=== PATIENT | female | born 1960 | race Caucasian/White ===

== ENCOUNTER 2021-12-21 14:11 | Outpatient (CLI) | payer OTHER, SELFPAY ==
--- NOTE | 2021-12-21 14:40 | CRLHL7_ITS ---
For Patients: As a result of the Cures Act, medical imaging exams and procedure reports are released immediately into your electronic medical record. You may view this report before your referring provider. If you have questions, please contact your health care provider. BILATERAL SCREENING MAMMOGRAM WITH COMPUTER-AIDED DETECTION AND TOMOSYNTHESIS TECHNIQUE: CC and MLO views were obtained. These mammographic images have been obtained using full-field digital technique. These mammographic images were interpreted with the benefit of computer-aided detection. Breast Tomosynthesis was used in this interpretation. COMPARISON FILM: 12/12/20, 12/08/19, 10/28/18. FINDINGS: The breasts are heterogeneously dense, which may obscure small masses IMPRESSION: There is no radiographic evidence for malignancy. ASSESSMENT: BI-RADS Category 1: Negative RECOMMENDATION: Routine screening mammogram in 1 year. A lay language report of this examination will be provided to the patient. Wenceslao Javed M.D. Diagnostic Radiologist [email or web address] JAXON/carlyle / be/Dictated by: Wenceslao Javed MD @ 12/22/2021 8:18:00 AM (Electronically Signed)
== END 2021-12-21 14:12 | disposition home or self-care (01) ==
LOC: MAMMO 14:13
PROVIDERS: PCP Family Medicine; Visit Provider Family Medicine
DX: Z12.31 Encounter for screening mammogram for malignant neoplasm of breast (principal); R92.2 Inconclusive mammogram
CPT/HCPCS: 77063; 77067

== ENCOUNTER 2022-02-21 11:06 | Outpatient (CLI) | payer OTHER, SELFPAY ==
[2022-02-21 09:44] LABS: Albumin* 4.6 g/dL (3.3-5.0); Chloride* 109 mmol/L (96-114)
[2022-02-21 09:45] LABS: Potassium* 4.4 mmol/L (3.6-5.1); Sodium* 141 mmol/L (135-149)
[2022-02-21 09:47] LABS: Alanine Aminotransferase* 19 U/L (4-35); Alkaline Phosphatase* 61 U/L (40-150); Bilirubin Total* 0.6 mg/dL (0.1-1.5); Blood Urea Nitrogen* 16 mg/dL (7-30); Carbon Dioxide* 27 mmol/L (20-32); Cholesterol* 191 mg/dL (90-199); Creatinine* 0.7 mg/dL (0.5-1.5); Estimated Glomerular Filt Rate 98 ml/min; Glucose* 102 mg/dL (60-115); Total Protein* 7.3 g/dL (6.0-8.3); Triglycerides* 45 mg/dL (40-149)
[2022-02-21 09:48] LABS: Calcium* 9.2 mg/dL (8.4-10.6); HDL Cholesterol* 94 mg/dL (>=50); LDL Cholesterol Calculated 88 mg/dL (<100)
[2022-02-21 10:03] LABS: Aspartate Amino Transferase* 22 U/L (12-35)
[2022-02-21 10:14] LABS: Vitamin D 25 Hydroxy* 49 ng/mL (30-80)
== END 2022-02-21 11:07 | disposition home or self-care (01) ==
PROVIDERS: PCP Family Medicine; Visit Provider Family Medicine
DX: R79.89 Other specified abnormal findings of blood chemistry (principal); M85.80 Other specified disorders of bone density and structure, unspecified site; Z13.6 Encounter for screening for cardiovascular disorders
CPT/HCPCS: 80053; 80061; 82306

== ENCOUNTER 2022-05-10 08:38 | Outpatient (CLI) | payer OTHER, SELFPAY | END 2022-05-10 08:39 | disposition home or self-care (01) | PROVIDERS: PCP Family Medicine; Visit Provider Family Medicine | DX: R30.0 Dysuria (principal) | CPT/HCPCS: 87086 ==

== ENCOUNTER 2022-11-14 08:00 | Outpatient (RCR) | payer OTHER, SELFPAY | END 2023-03-14 23:59 | disposition home or self-care (01) | PROVIDERS: PCP Family Medicine; Visit Provider Obstetrics & Gynecology | DX: N99.89 Other postprocedural complications and disorders of genitourinary system (principal); Z51.89 Encounter for other specified aftercare | CPT/HCPCS: 97110; 97140; 97162; 97535 ==

== ENCOUNTER 2022-12-05 11:46 | Outpatient (CLI) | payer OTHER, SELFPAY | END 2022-12-05 11:47 | disposition home or self-care (01) | PROVIDERS: PCP Family Medicine; Visit Provider Physician Assistant | DX: N89.8 Other specified noninflammatory disorders of vagina (principal); R10.2 Pelvic and perineal pain | CPT/HCPCS: 86141; 87070; 87086; 87186 ==

== ENCOUNTER 2022-12-13 08:16 | Outpatient (CLI) | payer OTHER, SELFPAY ==
[2022-12-13 12:57] LABS: Creatinine* 0.6 mg/dL (0.5-1.5); Estimated Glomerular Filt Rate 101 ml/min
--- NOTE | 2022-12-13 13:00 | CRLHL7_ITS ---
For Patients: As a result of the Century Cures Act, medical imaging exams and procedure reports are released immediately into your electronic medical record. You may view this report before your referring provider. If you have questions, please contact your health care provider. Indication: PELVIC AND PERINEAL PAIN Technique: Postcontrast CT abdomen and pelvis. 66 cc Isovue 370 intravenous contrast. Please note that all CT scans at this facility use dose modulation, iterative reconstruction, and/or weight-based dosing when appropriate to reduce radiation dose to as low as reasonably achievable. Comparison: 08/29/2022 Findings: Linear subsegmental atelectasis left lower lobe. No pleural effusion. No free air. Stable subcentimeter cysts in the liver. Similar biliary tree status post cholecystectomy. Normal pancreas and spleen. Normal adrenal glands and kidneys. No adenopathy or free air. No abscess. Bladder normal. Uterus absent. Status post appendectomy. No abdominal wall hernia. No fracture. No bowel obstruction. No bowel wall thickening. Impression: Status post cholecystectomy, appendectomy and hysterectomy. No bowel obstruction or inflammatory change. No incisional abdominal wall hernia or intra-abdominal abscess. Please note that all CT scans at this facility use dose modulation, iterative reconstruction, and/or weight-based dosing when appropriate to reduce radiation dose to as low as reasonably achievable. Dictated by Wenceslao Javed MD @ 12/14/2022 2:12:48 PM (Electronically Signed)
== END 2022-12-13 08:17 | disposition home or self-care (01) ==
LOC: CT 08:16
PROVIDERS: PCP Family Medicine; Visit Provider Physician Assistant
DX: R10.2 Pelvic and perineal pain (principal)
CPT/HCPCS: 36415; 74177; 82565; Q9967

== ENCOUNTER 2022-12-28 10:34 | Outpatient (CLI) | payer OTHER, SELFPAY ==
--- NOTE | 2022-12-28 10:45 | CRLHL7_ITS ---
For Patients: As a result of the Century Cures Act, medical imaging exams and procedure reports are released immediately into your electronic medical record. You may view this report before your referring provider. If you have questions, please contact your health care provider. BILATERAL SCREENING MAMMOGRAM WITH COMPUTER-AIDED DETECTION AND TOMOSYNTHESIS TECHNIQUE: CC and MLO views were obtained. These mammographic images have been obtained using full-field digital technique. These mammographic images were interpreted with the benefit of computer-aided detection. Breast Tomosynthesis was used in this interpretation. COMPARISON FILM: 12/21/21, 12/12/20, 06/08/20. FINDINGS: The breasts are extremely dense, which lowers the sensitivity of mammography IMPRESSION: There is no radiographic evidence for malignancy. ASSESSMENT: BI-RADS Category 2: Benign RECOMMENDATION: Routine screening mammogram in 1 year. A lay language report of this examination will be provided to the patient. Wenceslao Javed M.D. Diagnostic Radiologist [email or web address] KAL/Dictated by: Wenceslao Javed MD @ 12/28/2022 12:09:00 PM (Electronically Signed)
== END 2022-12-28 10:35 | disposition home or self-care (01) ==
PROVIDERS: PCP Family Medicine; Visit Provider Family Medicine
DX: Z12.31 Encounter for screening mammogram for malignant neoplasm of breast (principal); R92.2 Inconclusive mammogram
CPT/HCPCS: 77063; 77067

== ENCOUNTER 2023-01-08 09:25 | Outpatient (CLI) | payer OTHER, SELFPAY | END 2023-01-08 09:26 | disposition home or self-care (01) | PROVIDERS: PCP Family Medicine; Visit Provider Obstetrics & Gynecology | DX: D06.9 Carcinoma in situ of cervix, unspecified (principal) | CPT/HCPCS: 87086 ==

== ENCOUNTER 2023-04-18 13:14 | Outpatient (CLI) | payer OTHER, SELFPAY ==
--- NOTE | 2023-04-18 16:00 | CRLHL7_ITS ---
For Patients: As a result of the Century Cures Act, medical imaging exams and procedure reports are released immediately into your electronic medical record. You may view this report before your referring provider. If you have questions, please contact your health care provider. Indication: Pain Technique: CT Abdomen/Pelvis W/ 65CC ISOVUE 370 Please note that all CT scans at this facility use dose modulation, iterative reconstruction, and/or weight-based dosing when appropriate to reduce radiation dose to as low as reasonably achievable. Comparison: 12/13/2022 Findings: Linear subsegmental scarring within the left lower lobe. No pleural effusion. No suspicious intrahepatic mass. Subcentimeter simple cyst again noted within the dome of the liver. The gallbladder is absent. No biliary obstruction. The pancreas is within normal limits. Normal spleen. Normal adrenal glands. Kidneys are normal. No adenopathy, free air, free fluid or abscess. Minimal atherosclerotic disease. No aneurysm. Bladder normal. No pelvic soft tissue mass. No bowel obstruction. No inflammatory changes. No fracture. Stool is present throughout the redundant colon. Impression: Increased colonic stool burden is suggested which could represent constipation. No bowel obstruction or inflammatory change. Please note that all CT scans at this facility use dose modulation, iterative reconstruction, and/or weight-based dosing when appropriate to reduce radiation dose to as low as reasonably achievable. Dictated by Wenceslao Javed MD @ 04/18/2023 3:40:29 PM (Electronically Signed)
== END 2023-04-18 13:15 | disposition home or self-care (01) ==
LOC: CT 13:16
PROVIDERS: PCP Family Medicine; Visit Provider Obstetrics & Gynecology Gynecologic Oncology
DX: R10.9 Unspecified abdominal pain (principal); D07.1 Carcinoma in situ of vulva; D07.2 Carcinoma in situ of vagina
CPT/HCPCS: 74177; Q9967

== ENCOUNTER 2023-06-27 11:15 | Outpatient (CLI) | payer OTHER, SELFPAY | END 2023-06-27 11:16 | disposition home or self-care (01) | LOC: NFLDREF 07-01 07:13 | PROVIDERS: PCP Family Medicine; Referring Provider Family Medicine; Visit Provider Family Medicine | DX: E78.5 Hyperlipidemia, unspecified (principal); Z13.228 Encounter for screening for other metabolic disorders | CPT/HCPCS: 80053; 80061 ==

== ENCOUNTER 2023-07-25 13:31 | Outpatient (CLI) | payer OTHER, SELFPAY ==
--- OUTSIDE RECORDS SUMMARY | 2023-07-25 13:39 | XMS_ITS ---
Author Name Unknown Organization [facility] Address [address] [place] [address] Care Team Providers Care Chief Operator Name Role Phone Unavailable Unavailable Unavailable Surgery Details Not on file Complications Check Surgery Details section. Procedure Estimated Blood Loss Check Surgery Details section. Procedure Findings Check Surgery Details section. Procedure Specimens Taken Check Surgery Details section.
--- OUTSIDE RECORDS SUMMARY | 2023-07-25 13:39 | XMS_ITS | Encounter Summary ---
Author Name Unknown Organization [facility] Address [address] [place] [address] Care Team Providers Care Financial Planning Adviser Name Role Phone Elsewhere, Pcp Primary Care Provider Unavailabl e Encounter Details Date Type Department Care Team (Late st Contact Info) Description 05/13/2023 Orders Only Division of Gastroenterology in [place], [place] [address] [place] [address] Fred Metzger M.D. [address] [place] [address] Genetic Susceptibility To Disease Social History Tobacco Use Types Packs/Day Years Used Date Smoking Tobacco: Never Smokeless Tobacco: Never Alcohol Use Standard Drinks/Week Comments Yes 3 (1 standard drink = 0.6 oz pur e alcohol) Humiliation, Afraid, Rape, and Kick questionnair e Answer Date Recorded Within the last year, have y ou been afraid of your partner or ex-partner? No 05/29/2022 Within the last year, have y ou been humiliated or emotionally abused in other ways by your partner or ex-partner? No Within the last year, have y ou been kicked, hit, slapped, or otherwise physically hurt by your partner or ex-partner? No 05/29/2022 Within the last year, have y ou been raped or forced to have any kind of sexual activity by your partner or ex-partner? No 05/29/2022 Social Connection and Isolat ion Panel [NHANES] Answer Date Recorded In a typical week, how many times do you talk on the phone with family, friends, or neighbors? More than three times a week 05/29/2022 How often do you get togethe r with friends or relatives? More than three times a week 05/29/2022 How often do you attend chur ch or latter day services? Patient declined 05/29/2022 Do you belong to any clubs o r organizations such as mormonism groups, unions, fraternal or athletic groups, or school groups? Patient declined 05/29/2022 How often do you attend meet ings of the clubs or organizations you belong to? Patient declined 05/29/2022 Are you , , di vorced, , never , or living with a partner? 05/29/2022 AUDIT-C Answer Date Recorded Q1: How often do you have a drink containing alc ohol? 2-3 times a week 05/29/2022 Q2: How many drinks containi ng alcohol do you have on a typical day when you are drinking? 1 or 2 05/29/2022 Q3: How often do you have si x or more drinks on one occasion? Never 05/29/2022 Overall Financial Resource Strain (CARDIA) Answe r Date Recorded How hard is it for you to pa y for the very basics like food, housing, medical care, and heating? Not hard at all 05/29/2022 PHQ-2 Answer Date Recorded PHQ-2 Score 0 11/27/2022 [facility] Occupational Stress Questionnaire Answer Date Recorded Do you feel stress - tense, restless, nervous, or anxious, or unable to sleep at night because your mind is troubled all the time - these days? Not at all 05/29/2022 Exercise Vital Sign Answer Date Recorde d On average, how many days pe r week do you engage in moderate to strenuous exercise (like a brisk walk)? 2 days 05/29/2022 On average, how many minutes do you engage in exercise at this level? 20 min 05/29/2022 Hunger Vital Sign Answer Date Recorded Within the past 12 months, y ou worried that your food would run out before you got the money to buy more. Never true 05/30/19 Within the past 12 months, t he food you bought just didn't last and you didn't have money to get more. Never true 05/29/2022 PRAPARE - Transportation Answer Date Re corded In the past 12 months, has l ack of transportation kept you from medical appointments or from getting medications? No 09/2022 In the past 12 months, has l ack of transportation kept you from meetings, work, or from getting things needed for daily living? No 05/29/2022 Housing Stability Vital Sign Answer Av e Recorded In the last 12 months, was t here a time when you were not able to pay the mortgage or rent on time? No 05/29/2022 In the last 12 months, how many places have you lived? 2 05/29/2022 In the last 12 months, was t here a time when you did not have a steady place to sleep or slept in a detention (including now)? No 05/29/2022 Nutrition Answer Date Recorded Nutrition: EVOO Fat Source Yes 05/29 On average, how many serving s of fruits and vegetables do you eat per day (serving size is equal to 1 cup or approximately the size of a tennis ball)? 0-1 05/29/2022 Dental Answer Date Recorded Dental: Regular Dentist Yes 05/30/19 Employment Answer Date Recorded Employment status Employed and actively working without restrictions 05/29/2022 Education Answer Date Recorded What is the highest level of school you have completed or the highest degree you have received? Associate degree: academic program 05/29/2022 Sex and Gender Information Value Date Recorded Sex Assigned at Female 08/26/2022 7:55 AM CDT Gender Identity Female 08/26/2022 7:55 AM CDT Sexual Orientation Straight 08/26/2022 7: 55 AM CDT documented as of this encounter Plan of Treatment Not on file documented as of this encounter Procedures Procedure Name Priority Date/Time Associated Diagnosis Comments EXT TAPESTRY Routine 10/23/2022 12:00 AM CDT Genetic Susceptibility To Disease documented in this encounter Results * EXT Tapestry (10/23/2022 12:00 AM CDT) Gene Studied BRCA1,BRCA2,MLH1,MSH 2, MSH6,PMS2,EPCAM,APOB,L DLR,LDLRAP1,PCSK9 11/15/2022 12:00 AM [facility] Genetic Disease Assessed Evaluation of 11 genes associated with Hereditary Breast and Ovarian Cancer, Mariee Syndrome and Familial Hypercholesterolemia. 11/15/2022 12:00 AM [employer] Genetic Analysis Overall Interpretation Negative results through Tapestry do not replace diagnostic testing for patients with a personal or family history of cancer/hypercholestero lemia due to limitations with methodology. Consider a referral to a genetic counselor for diagnostic testing if warranted. 11/15/2022 12:00 AM CDT [facility] Genetic Analysis Report See Tapestry PDF Report No actionable gene changes were detected in the genes that cause Familial Hypercholesterolemia. The genes tested for this condition were APOB, LDLR, LDLRAP1, and PCSK9.No actionable gene changes were detected in the genes that cause Hereditary Breast and Ovarian Cancer. The genes tested for this condition were BRCA1 and BRCA2.No actionable gene changes were detected in the genes that cause Mariee Syndrome. The genes tested for this condition were MLH1, MSH2, MSH6, PMS2 and EPCAM. DNA extracted from this individual's sample was captured and enriched using a custom set of reagents ([employer]+ chemistry). Targeted regions were sequenced using an Illumina DNA sequencing system. Your sequence was matched to a modified version of the [place] standard reference genome (GRCh38). Variant calling was completed using a customized version of [employer]'s DanceJam software, requiring 20x coverage for validated variant calls. Copy Number Variants (CNVs) were called using a proprietary bioinformatics pipeline that compared the coverage profile of your sample with the coverage profiles of other reference set samples. [facility] then analyzed the generated variant data for the exons and 10 bp of flanking intronic sequence (and select tagged intronic variants) of the 11 genes included in [employer]xxana from the [employer] Database. Your sample was reviewed for single nucleotide variants (SNVs), indels up to 20 bp in length, and CNVs that are known or predicted to be actionable. NOTE: This assay has limited sensitivity to CNVs smaller than a few exons. APOB, PCSK9, and LDLR interpretation and reporting is specific to the Familial Hypercholesterolemia phenotype. Variants associated with other phenotypes such as Hypobetalipoproteinemi a are not included. Some known complex variants like the inversion of exons 1-7 in the MSH2 gene (Rissa inversion), exons 11-15 of the PMS2 gene, or variants within or immediately adjacent to long homopolymer runs are not analyzed or reported. There are regions that are not covered, such as deep intronic, promoter, and enhancer regions. This assay cannot detect all variants known to increase disease risk. Other clinical diagnostic testing for these conditions could identify variants not detected by this test. If you have had previous testing, these results should be taken into consideration during risk assessments and medical management. 11/15/2022 12:00 AM T [facility] Human Reference Sequence Assembly [id number] 11/15/2022 12:00 AM [facility] Saliva (Mouth) 10/23/2022 Fred Metzger M.D. LAB GENETI C TESTING HELIX [employer] [address], [address] [place] [address], [facility] [address], [address] [place] [address] documented in this encounter Visit Diagnoses Diagnosis Genetic Susceptibility To Disease documented in this encounter Care Teams Financial Planning Adviser Relationship Specialty Start Date End Date Elsewhere, Pcp PCP - General Internal Medicine 06/01/22 documented as of this encounter
--- OUTSIDE RECORDS SUMMARY | 2023-07-25 13:39 | XMS_ITS | Referral Summary ---
Author Name Unknown Organization [facility] Address [address] [place] [address] Care Team Providers Care Pattern Lease Inspector Name Role Phone Elsewhere, Pcp Primary Care Provider Unavailabl e Source Comments Patient records contain information from all sites at [facility]. For routine questions regarding patient records, call [phone] during business hours, M-F 8:00 AM - 5:00 PM Central Time. Record requests for emergency care only can be directed to [phone] at any time.[facility] Encounters Date Type Department Care Team Description 06/25/2023 Nurse Triage Department of Family Medicine, [facility], in [address] [id number] Lisandra Mcneal R.N. Upper Respiratory Infection; Cough; sinus congestion 05/13/2023 Orders Only Division of Gastroenterology in [place], [place] [address] [place] [address] Fred Metzger M.D. Genetic Susceptibility To Disease from Last 3 Months Allergies No known active allergies Medications Medication Sig Dispensed Refills Start Date End Date Status topiramate (TOPAMAX) 50 mg tablet Take 50 mg by mouth daily. 01/13/2020 Active eletriptan (RELPAX) 40 mg tablet Take 40 mg by mouth as needed. 01/13/2020 Active alendronate (FOSAMAX) 70 mg tablet 70 mg once a week. 04/28/2021 Active VITAMIN B COMPLEX ORAL Take 1 tablet by mouth daily. Active ascorbic acid, vitamin C, (VITAMIN C) 500 mg tablet Take 500 mg by mouth daily. Active magnesium 200 mg tablet Take 400 mg by mouth every morning before breakfast. Active multivitamin tablet Take 1 tablet by mouth daily. Active acetaminophen (TYLENOL) 500 mg tablet Take 2 tablets (1,000 mg total) by mouth every 6 (six) hours as needed for pain. Alternate with ibuprofen every 3 hours. Do not exceed 4000 mg or 4 g in 24 hours. 30 tablet 04/30/2022 Active ibuprofen (ADVIL,MOTRIN) 200 mg tablet Take 3 tablets (600 mg total) by mouth every 6 (six) hours as needed for pain. Alternate with acetaminophen every 3 hours. 30 tablet 04/30/2022 Active levoFLOXacin (LEVAQUIN) 500 mg tablet Take 1 tablet (500 mg total) by mouth daily. 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 Patient declined 05/29/2022 Do you belong to any clubs o r organizations such as adventist groups, unions, fraternal or athletic groups, or [...] PHQ-2 Score 0 11/27/2022 [facility] - Occupational Stress Questionnaire Answer Date Recorded [...] money to buy more. Never true 05/30/19 23 Within the past 12 months, t he [...] place to sleep or slept in a penitentiary (including now)? No 05/29/2022 Nutrition Answer Date [...] Orientation Straight 08/26/2022 7: 55 AM CDT Last Filed Vital Signs Vital Sign Reading Time Taken Comments Blood Pressure 96/68 11/27/2022 1:09 PM CDT Pulse 98 11/27/2022 1:09 PM CDT Temperature 36.2 ??C (97.2 ??F) 11/27/2022 1:09 PM CD T Respiratory Rate 20 08/09/2022 9:57 AM CDT Oxygen Saturation 100% 08/09/2022 9:15 AM CDT Inhaled Oxygen Concentration - - Weight 59.4 kg (130 lb 15.3 oz) 11/27/2022 1:09 PM CDT Height 163 cm (5' 4.17) 11/27/2022 1:09 PM CDT Body Mass Index 22.36 11/27/2022 1:09 PM CDT Plan of Treatment Not on file Medical Devices Implanted Type Area Glassworker Device Identifier Shelf Expiration Date Model / Serial / Lot Hardware E.G. Pins/Screws/R ods Hardware e.g. pins/screws/ rods Right: Fingers Description:Right middle fin kenji Procedures Procedure Name Priority Date/Time Associated Diagnosis Comments BASIC METABOLIC PANEL, S/P Routine 08/28/2022 12:00 PM CDT Pain Pelvic Female from Last 3 Months or Most Recently Relevant to Health Maintenance Results * Basic Metabolic Panel (08/28/2022 12:00 PM CDT) Potassium, S 4.4 3.6 - 5.2 mmol/L 08/28/2022 1:22 PM CDT DTL Sodium, S 141 135 - 145 mmol/L 08/28/2022 1:22 PM CDT DTL Chloride, S 105 98 - 107 mmol/L 08/28/2022 1:22 PM CDT DTL Bicarbonate, S 25 22 - 29 mmol/L 08/28/2022 1:22 PM CDT DTL Anion Gap 11 7 - 15 08/28/2022 1:22 PM CDT DTL BUN (Blood Urea Nitrogen), S 12 6 - 21 mg/dL 08/28/2022 1:22 PM CDT DTL Creatinine 0.74 0.59 - 1.04 mg/dL 08/28/2022 1:22 PM CDT DTL Estimated GFR (eGFR) >90 >=60 mL/min/BSA 08/28/2022 1:22 PM CDT DTL Comment: Estimated GFR calculated using the 2020 CKD_EPI creatinine equation. Calcium, Total, S 9.3 8.8 - 10.2 mg/dL 08/28/2022 1:22 PM CDT DTL Glucose, S 98 70 - 140 mg/dL 08/28/2022 1:22 PM CDT DTL Blood (Blood, Venous) 08/28/2022 12:00 PM CDT 08/28/2022 12:49 PM CDT Juan Francisco Germain P.A.-C. LAB BLOOD ADD-ON [facility] [address] [place] [address], [facility] [address] [place] [address] from Last 3 Months or Most Recently Relevant to Health Maintenance Advance Directives For more information, please contact: [phone] * Full Code (Latest Code Status on File) Date Activated Date Inactivated Comments 07/22/2022 8:44 PM 07/23/2022 1:43 PM Question Answer Comments Full Code: Discussed * Full Code Date Activated Date Inactivated Comments 04/30/2022 2:53 PM 04/30/2022 8:05 PM Question Answer Comments Full Code: Discussed * Full Code Date Activated Date Inactivated Comments 04/30/2022 8:58 AM 04/30/2022 2:53 PM Question Answer Comments Full Code: Discussed Care Teams Pattern Lease Inspector Relationship Specialty Start Date End Date Elsewhere, Pcp PCP - General Internal Medicine 06/01/22
--- OUTSIDE RECORDS SUMMARY | 2023-07-25 13:39 | XMS_ITS | Clinical Summary ---
Author Name Unknown Organization [facility] Address [address] [place] [address] Care Team Providers Care Hand Twister Name Role Phone Elsewhere, Pcp Primary Care Provider Unavailabl e Source Comments Patient records contain information from all sites at [facility]. For routine questions regarding patient records, call [phone] during business hours, M-F 8:00 AM - 5:00 PM Central Time. Record requests for emergency care only can be directed to [phone] at any time.[facility] Allergies No known active allergies Medications Medication [...] Overview: Added automatically from request for surgery [id number] Osteoporosis 04/26/2022 Encounters Date Type Department Care Team Description 06/25/2023 Nurse Triage Department of Family Medicine, [facility], in [address] [address] Lisandra Mcneal R.N. Upper Respiratory Infection; Cough; sinus congestion 05/13/2023 Orders Only Division of Gastroenterology in [place], [place] [address] [place] [address] Fred Metzger M.D. Genetic Susceptibility To Disease from Last 3 Months Family History Medical History Relation Name Comments Colon cancer Father My father Hyperlipidemia Father My father Lung cancer Mother My mother Migraines Mother My mother Osteoporosis Mother My mother Breast cancer Mother's Sister Aunt? s mother? s side Relation Name Status Comments Father My father Mother My mother Mother's Sister Aunt? s mother? s side Social History Tobacco Use Types Packs/Day Years [...] often do you attend chur ch or jainism services? Patient declined 05/29/2022 Do you belong to any clubs o r organizations such as muslim groups, unions, fraternal or athletic groups, or [...] Answer Date Recorded PHQ-2 Score 0 11/27/2022 [facility] - Occupational [...] place to sleep or slept in a mcfp (including now)? No 05/29/2022 Nutrition Answer Date [...] 11/27/2022 1:09 PM CDT Plan of Treatment Health Maintenance Due Date Last Done Comments CT Colonography 1960 Cologuard 1960 Hepatitis C Screening 1960 Lipid (Cholesterol) Screening 1960 Mammogram 1960 Zoster Vaccines (1 of 2) 2010 Depression Screening (Annual PHQ-2) 03/25/2023 COVID-19 Vaccine ( season) 2023 12/18/2022, 12/20/2021, 08/02/2021, Additional history exists Fasting Glucose for Diabetes Screening 08/28/2025 08/28/2022, 08/09/2022, 07/22/2022, Additional history exists Colonoscopy 10/04/2025 10/04/2020 Colorectal Cancer Surveillance 10/04/2025 DTaP,Tdap,and Td Vaccines (2 - Td or Tdap) 07/24/2028 07/24/2018 Pneumococcal vaccine (0-64 years) Aged Out 03/19/2019 No longer eligible based on patient's age to complete this topic Cervical Cancer Screening Discontinued 03/15/2022 Influenza Vaccine Completed 12/18/2022, , 12/21/2020, Additional history exists Medical Devices Implanted Type Area Recruiting Intern Device Identifier Shelf Expiration Date Model / [...] Juan Francisco Germain P.A.-C. LAB BLOOD ADD-ON [facility] [address] [place] [address], [facility] [address] [place] [address] from Last 3 Months or Most Recently Relevant to Health Maintenance Advance Directives For more information, please contact: [phone] * Full Code (Latest Code Status on [...] Answer Comments Full Code: Discussed Care Teams Hand Twister Relationship Specialty Start Date End Date Elsewhere, Pcp PCP - General Internal Medicine 06/01/22
--- OUTSIDE RECORDS SUMMARY | 2023-07-25 13:39 | XMS_ITS | Encounter Summary ---
Author Name Unknown Organization [facility] Address [address] [place] [address] Care Team Providers Care Field Laboratory Operator Name Role Phone Elsewhere, Pcp Primary Care Provider Unavailabl e Reason for Visit * Reason Onset Date Comments Upper Respiratory Infection 06/25/2023 Cough 06/25/2023 sinus congestion 06/25/2023 Encounter Details Date Type Department Care Team (Late st Contact Info) Description 06/25/2023 Nurse Triage Department of Family Medicine, [facility], in [address] [address] Lisandra Mcneal, RNicolaN. Upper Respiratory Infection; Cough; sinus congestion Social History Tobacco Use Types Packs/Day Years [...] week 05/29/2022 How often do you attend [facility] or orthodox services? Patient declined 05/29/2022 Do you belong to any clubs o r organizations such as scientology groups, unions, fraternal or athletic groups, or [...] Answer Date Recorded PHQ-2 Score 0 11/27/2022 [facility] - Occupational Stress Questionnaire Answer Date [...] place to sleep or slept in a retirement (including now)? No 05/29/2022 Nutrition Answer Date [...] AM CDT documented as of this encounter Miscellaneous Notes * Telephone Encounter - Lisandra Mcneal R.N. - 06/25/2023 11:00 AM CDT Chief Complaint / Reason for Call Patient is a 62 y.o. female calling regarding Upper Respiratory Infection, Cough, and sinus congestion. Assessment Concern: began with sore throat (nearly resolved), negative COVID test at home, productive cough (yellow-green), sinus congestion and drainage (yellow-green) Present for: one week Home cares tried: Mucinex, Robitussin DM, cough drops, Sudafed Calling to request: appointment The recommended disposition is Home Care. Reason for Disposition Cough Cough with cold symptoms (e.g., runny nose, postnasal drip, throat clearing) Protocols used: Cough - Acute Dmocshccpu-MMHVN-GX Care Advice Patient/Caregiver understands and will follow care advice?: Yes, able to teach back HOME CARE: * You should be able to treat this at home. REASSURANCE AND EDUCATION - COUGH: * It doesn't sound like a serious cough. * Coughing up mucus is very important for protecting the lungs from pneumonia. * Here is some care advice that should help. COUGH MEDICINES: * COUGH DROPS: Ejkq-xzo-jsyiflt cough drops can help a lot, especially for mild coughs. They soothean irritated throat and remove the tickle sensation in the back of the throat. Cough drops are easyto carry with you. * COUGH SYRUP WITH DEXTROMETHORPHAN: An evca-rxd-hlykrnj cough syrup can help your cough. The most common cough suppressant in wurx-iwq-intwzbd cough medicines is dextromethorphan. * HOME REMEDY - HARD CANDY: Hard candy works just as well as hifp-hlr-yixtzji cough drops. People who have diabetes should use sugar-free candy. * HOME REMEDY - HONEY: This old home remedy has been shown to help decrease coughing at night. The adult dosage is 2 teaspoons (10 ml) at bedtime. COUGH SYRUP WITH DEXTROMETHORPHAN: * Cough syrups containing the cough suppressant dextromethorphan may help decrease your cough. * Cough syrup works best for coughs that keep you awake at night. It can also sometimes help in thelate stages of a lung or airway infection when the cough is dry and hacking. Cough syrup can be used along with cough drops. * Examples: Delsym 12-hour Cough, Robitussin Cough Long-Acting, Triaminic Long- Acting, Vicks DayQuil Cough. COUGH SYRUP WITH DEXTROMETHORPHAN - EXTRA NOTES AND WARNINGS: * Do not try to completely stop coughs that produce mucus and phlegm. * Coughing is helpful. It brings up the mucus from the lungs and helps prevent pneumonia. * RESEARCH: Some research studies show that dextromethorphan reduces the frequency and severity of cough in those 18 years and older without significant adverse effects. Other studies suggest that dextromethorphan is no better than placebo at reducing a cough. * DRUG ABUSE: It should be noted that dextromethorphan has become a drug of abuse. This problem is seen most often in teenagers. Overdose symptoms can range from giggling and feeling high to hallucinations and coma. * WARNING: Do not take dextromethorphan if you are taking a monoamine oxidase (MAO) inhibitor now or in the past 2 weeks. Examples of MAO inhibitors include isocarboxazid (Marplan), phenelzine (Nardil), selegiline (Eldepryl, Emsam, Zelapar), and tranylcypromine (Parnate). * WARNING: Do not take dextromethorphan if you are taking venlafaxine (Effexor). * Before taking any medicine, read all the instructions on the package. HUMIDIFIER: * If the air is dry, use a humidifier in the bedroom. * Dry air makes coughs worse. AVOID TOBACCO SMOKE: * Avoid tobacco smoke and e-cigarettes. * Smoking or being exposed to smoke makes coughs much worse. DRINK PLENTY OF LIQUIDS: * Drink plenty of liquids. * Staying well-hydrated will help loosen phlegm. * The liquids will also help soothe a dry or irritated throat. EXPECTED COURSE: * A viral upper respiratory infection (such as a cold or flu) causes a cough for 1 to 3 weeks. * Sometimes you may cough up phlegm (mucus). The mucus can normally be white, carbajal, yellow or greenfor the first couple days. CALL BACK IF: * Cough lasts over 3 weeks * Continuous coughing persists over 2 hours after cough treatment * Difficulty breathing occurs * Fever over 103 F (39.4 C) * Fever lasts over 3 days * You become worse REASSURANCE AND EDUCATION - COUGH WITH COMMON COLD SYMPTOMS: * It sounds like an uncomplicated cold that we can treat at home. * Colds are very common and may make you feel uncomfortable. * Colds are caused by viruses, and no medicine or 'shot' will cure an uncomplicated cold. Colds areusually not serious. * Coughing up mucus is very important for protecting the lungs from pneumonia. * Here is some care advice that should help. FOR A RUNNY NOSE - BLOW YOUR NOSE: * Nasal mucus and discharge help wash viruses and bacteria out of the nose and sinuses. * Blowing your nose helps clean out your nose. Use a handkerchief or a paper tissue. * If the skin around your nostrils gets irritated, apply a tiny amount of petroleum ointment to thenasal openings once or twice a day. NASAL WASHES FOR A STUFFY NOSE: * Introduction: Saline (salt water) nasal irrigation (nasal wash) is an effective and simple home remedy for treating stuffy nose and sinus congestion. The nose can be irrigated by pouring, spraying,or squirting salt water into the nose and then letting it run back out. * How it Helps: The salt water rinses out excess mucus and washes out any irritants (dust, allergens) that might be present. It also moistens the nasal cavity. * Methods: There are several ways to irrigate the nose. You can use a saline nasal spray bottle (available rzbv-yrd-dfxtqui), a rubber ear syringe, a medical syringe without the needle, or a NETI POT. NASAL WASHES - OSOD-SO-WNYW INSTRUCTIONS: * STEP 1: Lean over a sink. * STEP 2: Gently squirt or spray warm salt water into one of your nostrils. * STEP 3: Some of the water may run into the back of your throat. Spit this out. If you swallow thesalt water it will not hurt you. * STEP 4: Blow your nose to clean out the water and mucus. * STEP 5: Repeat steps 1 through 4 for the other nostril. You can do this a couple times a day if it seems to help you. HOW TO MAKE SALINE (SALT WATER) NASAL WASH: * Put 1 cup (8 oz; 240 ml) of water in a clean container. * Add 3/4 teaspoon of non-iodized salt (such as sina or pickling salt) to the water. * Add 1/4 teaspoon baking soda to the water. Stir well. * Use distilled water or boiled tap water that has cooled. * Throw away any unused saline nasal wash after 24 hours. NASAL DECONGESTANTS FOR A VERY STUFFY NOSE: * MOST PEOPLE DO NOT NEED TO USE THESE MEDICINES. * If your nose feels blocked, you should try using nasal washes first. * If you have a very stuffy nose, nasal decongestant medicines can shrink the swollen nasal mucosa and allow for easier breathing. If you have a very runny nose, these medicines can reduce the amountof drainage. They may be taken as pills by mouth or as a nasal spray. * Pseudoephedrine (Sudafed): Available rkqs-oci-nwugykm in pill form. Typical adult dosage is two 30 mg tablets every 6 hours. * Oxymetazoline Nasal Drops (Afrin in [place]; Drixoral in [place]): Available xtmh-jaa-vqmjyfh. Clean out the nose before using. Hayden each nostril once, wait one minute for absorption, and then spray a second time. * Phenylephrine Nasal Drops (Gabriel-Synephrine): Available eyll-iao-loxhxha. Clean out the nose beforeusing. Hayden each nostril once, wait one minute for absorption, and then spray a second time. NASAL DECONGESTANTS - EXTRA NOTES AND WARNINGS: * Do not use these medicines if you have high blood pressure, heart disease, prostate problems, or an overactive thyroid. * Do not use these medicines if you are . * Do not use these medicines if you have used a MAO inhibitor such as isocarboxazid (Marplan), phenelzine (Nardil), rasagiline (Azilect), selegiline (Eldepryl, Emsam), or tranylcypromine (Parnate) inthe past 2 weeks. Life- threatening side effects can occur. * Do not use these medicines for more than 3 days. Reason: Rebound nasal congestion when you stop taking them. * Before using any medicine, read all the instructions on the package. FEVER MEDICINES: * For fevers above 101 F (38.3 C) take either acetaminophen or ibuprofen. * They are kbdd-uuq-vijhkmn (OTC) drugs that help treat both fever and pain. You can buy them at the drugstore. * The goal of fever therapy is to bring the fever down to a comfortable level. Remember that fever medicine usually lowers fever 2 degrees F (1 - 1 1/2 degrees C). * ACETAMINOPHEN - REGULAR STRENGTH TYLENOL: Take 650 mg (two 325 mg pills) by mouth every 4 to 6 hours as needed. Each Regular Strength Tylenol pill has 325 mg of acetaminophen. The most you should take is 10 pills a day (3,250 mg total). Note: In [place], the maximum is 12 pills a day (3,900 mg total). * ACETAMINOPHEN - EXTRA STRENGTH TYLENOL: Take 1,000 mg (two 500 mg pills) every 6 to 8 hours as needed. Each Extra Strength Tylenol pill has 500 mg of acetaminophen. The most you should take is 6 pills a day (3,000 mg total). Note: In [place], the maximum is 8 pills a day (4,000 mg total). * IBUPROFEN (E.G., MOTRIN, ADVIL): Take 400 mg (two 200 mg pills) by mouth every 6 hours. The most you should take is 6 pills a day (1,200 mg total). FEVER MEDICINES - EXTRA NOTES AND WARNINGS: * Follow these dosing instructions unless your doctor (or NOC ENGINEER/PA) has told you to take a different dose. * Acetaminophen is thought to be safer than ibuprofen or naproxen in people over 65 years old. Acetaminophen is in many OTC and prescription medicines. It might be in more than one medicine that you are taking. You need to be careful and not take an overdose. An acetaminophen overdose can hurt the liver. * [employer], the company that makes Tylenol, has different maximum dosage instructions for Tylenol in [place] than in the [place]. [employer], the company that makes Aleve, has different dosage maximum instructions for Aleve in [place] and the [place]. * CAUTION: Do not take acetaminophen if you have liver disease. * CAUTION: Do not take ibuprofen or naproxen if you have stomach problems, kidney disease, are , or have been told by your doctor to avoid this type of anti-inflammatory drug. Do not take ibuprofen or naproxen for more than 7 days without consulting your doctor. If you take blood thinners, ibuprofen and naproxen can increase the risk of bleeding. * Before taking any medicine, read all the instructions on the package. CONTAGIOUSNESS: * The cold virus is present in your nasal secretions. * Cover your nose and mouth with a tissue when you sneeze or cough. Wash your hands frequently. * You can return to work or school after the fever is gone and you feel well enough to participate in normal activities. CALL BACK IF: * Fever lasts over 3 days * Nasal discharge lasts over 10 days * Earache or facial pain develops * You become worse documented in this encounter Plan of Treatment Not on file documented as of this encounter Visit Diagnoses Not on filedocumented in this encounter Care Teams Field Laboratory Operator Relationship Specialty Start Date End Date Elsewhere, Pcp PCP - General Internal Medicine 06/01/22 documented as of this encounter
--- NOTE | 2023-07-25 15:30 | XR_ITS ---
Patient: KATLIN ODEN Facility:?[facility] Patient ID:?[id number] Site Patient ID:?[id number]. Site :?[id number] Study:?DEXA-Bone Density -07/25/2023 3:44:51 PM Ordering Physician:MEGGAN Final Report: DXA BONE MINERAL DENSITY STUDY Reason for exam: Age-related osteoporosis. Current height (in): 64. Weight (lb): 128. Menopause age: 46. Ethnicity: White. 1. Have you had a previous hip or vertebral fracture? No. 2. Have you had any fractures during your adult life which did not result from significant trauma (e.g., auto accident)? No. 3. Did either of your parents have a hip fracture? Yes. 4. Do you smoke? No. 5. Have you ever taken Glucocorticoids? No. 6. Do you have rheumatoid arthritis? No. 7. Do you have secondary osteoporosis? No. 8. Do you drink 3 or more alcoholic drinks per day? No. 9. Are you being treated for osteoporosis? Yes. 10. Have you ever taken any of the following medications: Actonel, Evista, Fosamax, Miacalcin, Reclast, Boniva, Forteo, HRT (i.e. estrogen/hormone therapy), Protelos, Prolia, Vitamin D, Calcium, other ? please specify. ANSWER: Yes, Vitamin D, Calcium and migraine Topimax. 11. Do you have any of the following medical conditions: Anorexia or bulimia, asthma or emphysema, end stage renal disease, hyperparathyroidism, any seizure disorders, cancer, inflammatory bowel diseases, hysterectomy, other ? please specify. ANSWER: Yes, hysterectomy. 12. What was your maximum height (inches)? 65. 13. Do you perform weight bearing exercise regularly? No. 14. Do you regularly consume dairy products? No. 15. Do you drink caffeinated beverages? Yes. 16. At what age did your period start? 13. 17. Are you premenopausal? No. 18. How many full term pregnancies have you had? 2. 19. Have you ever missed your period for more than 6 months in a row (not including or menopause)? No. TECHNIQUE: Bone mineral density study was performed using the TMAT. FINDINGS: The results of the study expressed as bone mineral density (BMD) are as follows: Lumbar spine L1 to L4: BMD: 0.765 g/cm2. T-score: -2.6. Z-score: -1.0. Neck Left: BMD: .0587 g/cm2. T-score: -2.4. Z-score: -1.0. Right: BMD: 0.585 g/cm2. T-score: -2.4. Z-score: -1.0. Total Left: BMD: 0.721 g/cm2. T-score: -1.8. Z-score: -0.7. Right: BMD: 0.725 g/cm2. T-score: -1.8. Z-score: -0.7. IMPRESSION: Osteoporosis. *Comparison exams done prior to 08/2019 were performed on different unit, [employer]. COMPARISON: Compared with scan of 04/05/2021, the bone mineral density has increased by 4.8 percent at the spine and increased by 2.5 percent at the hip. Wenceslao Javed M.D. Diagnostic Radiologist [email or web address] DSM/sp D& Transcribed: 5:27 p.m. SP/Dictated by: Wenceslao Javed MD @ 07/26/2023 9:10:00 AM Signed by:?Wenceslao Javed MD @07/26/2023 6:08:43 PM (Electronic Signature)
== END 2023-07-25 13:32 | disposition home or self-care (01) ==
LOC: RAD 13:32
PROVIDERS: PCP Family Medicine; Visit Provider Family Medicine
DX: M81.0 Age-related osteoporosis without current pathological fracture (principal)
CPT/HCPCS: 77080

== ENCOUNTER 2023-12-26 15:55 | Outpatient (CLI) | payer OTHER, SELFPAY ==
--- OUTSIDE RECORDS SUMMARY | 2023-12-26 15:58 | XMS_ITS | Clinical Summary ---
Author Organization [facility] Address [address] [place] [address] Care Team Providers Care Filing Writer Name Role Phone Elsewhere, Pcp Primary Care Provider Unavailabl e Source Comments Patient records contain information from all sites at [facility]. For routine questions regarding patient records, call [phone] during business hours, M-F 8:00 AM - 5:00 PM Central Time. 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 Patient declined 05/29/2022 Do you belong to any clubs o r organizations such as orthodox groups, unions, fraternal or athletic groups, or [...] Answer Date Recorded PHQ-2 Score 0 11/27/2022 [facility] - Occupational Stress Questionnaire Answer Date Recorded [...] place to sleep or slept in a correction (including now)? No 05/29/2022 Nutrition Answer Date [...] 2023 12/18/2022, 12/20/2021, 08/02/2021, Additional history exists Influenza Vaccine (#1) 2023 , 12/20/2021, 12/21/2020, Additional history exists Fasting Glucose for Diabetes Screening 08/28/2025 08/28/2022, 08/09/2022, 07/22/2022, Additional history exists Colonoscopy 10/04/2025 10/04/2020 Colorectal Cancer Surveillance 10/04/2025 DTaP,Tdap,and Td Vaccines (2 - Td or Tdap) 07/24/2028 07/24/2018 Pneumococcal vaccine (0-64 years) Aged Out 03/19/2019 No longer eligible based on patient's age to complete this topic Cervical Cancer Screening Discontinued 03/15/2022 Medical Devices Implanted Type Area Automotive Service Professional Device Identifier Shelf Expiration Date Model / [...] Juan Francisco Germain P.A.-C. LAB BLOOD ADD-ON [facility] [address] [place] [address], [facility] [address] [place] [address] from Last 3 Months or Most Recently Relevant to Health Maintenance Advance Directives For more information, please contact: [phone] * Full Code (Latest Code Status on [...] Answer Comments Full Code: Discussed Care Teams Filing Writer Relationship Specialty Start Date End Date Elsewhere, Pcp PCP - General Internal Medicine 06/01/22
--- OUTSIDE RECORDS SUMMARY | 2023-12-26 15:58 | XMS_ITS ---
Author Organization [facility] Address [address] [place] [address] Care Team Providers Care Mixer Operator Vacuum Pan Salt Name Role Phone Unavailable Unavailable Unavailable Surgery Details Not on file Complications Check Surgery Details section. Procedure Estimated Blood Loss Check Surgery Details section. Procedure Findings Check Surgery Details section. Procedure Specimens Taken Check Surgery Details section.
--- OUTSIDE RECORDS SUMMARY | 2023-12-26 15:58 | XMS_ITS | Referral Summary ---
Author Organization [facility] Address [address] [place] [address] Care Team Providers Care Meter And Regulator Shop Supervisor Name Role Phone Elsewhere, Pcp Primary Care Provider Unavailabl e Source Comments Patient records contain information from all sites at [facility]. For routine questions regarding patient records, call [phone] during business hours, M-F 8:00 AM - 5:00 PM Central Time. Record requests for emergency care only can be directed to [phone] at any time.[facility] Allergies No known active allergies Medications [...] (04/26/2022): Added automatically from request for surgery [id number] Osteoporosis 04/26/2022 Social History Tobacco Use Types [...] often do you attend chur ch or mosque services? Patient declined 05/29/2022 Do you belong to any clubs o r organizations such as restorationism groups, unions, fraternal or athletic groups, or [...] Answer Date Recorded PHQ-2 Score 0 11/27/2022 [facility] of Occupat ional [facility] - Occupational Stress Questionnaire Answer Date Recorded [...] place to sleep or slept in a senior care (including now)? No 05/29/2022 Nutrition Answer Date [...] on file Medical Devices Implanted Type Area Child Protective Investigator Device Identifier Shelf Expiration Date Model / [...] Juan Francisco Germain P.A.-C. LAB BLOOD ADD-ON [facility] [address] [place] [address], [facility] [address] [place] [address] from Last 3 Months or Most Recently Relevant to Health Maintenance Advance Directives For more information, please contact: [phone] * Full Code (Latest Code Status on [...] Answer Comments Full Code: Discussed Care Teams Meter And Regulator Shop Supervisor Relationship Specialty Start Date End Date Elsewhere, Pcp PCP - General Internal Medicine 06/01/22
== END 2023-12-26 15:56 | disposition home or self-care (01) ==
LOC: NFLDREF 15:56
PROVIDERS: PCP Family Medicine; Visit Provider Family Medicine
DX: R39.9 Unspecified symptoms and signs involving the genitourinary system (principal)
CPT/HCPCS: 87086

== ENCOUNTER 2024-01-01 07:05 | Outpatient (CLI) | payer OTHER, SELFPAY ==
--- OUTSIDE RECORDS SUMMARY | 2024-01-01 07:08 | XMS_ITS ---
Author Organization [facility] Address [address] [place] [address] Care Team Providers Care Construction Equipment Technician Name Role Phone Unavailable Unavailable Unavailable Surgery Details Not on file Complications Check Surgery Details section. Procedure Estimated Blood Loss Check Surgery Details section. Procedure Findings Check Surgery Details section. Procedure Specimens Taken Check Surgery Details section.
--- OUTSIDE RECORDS SUMMARY | 2024-01-01 07:08 | XMS_ITS | Clinical Summary ---
Author Organization [facility] Address [address] [place] [address] Care Team Providers Care Gymnasium Teacher Name Role Phone Elsewhere, Pcp Primary Care Provider Unavailabl e Source Comments Patient records contain information from all sites at [facility]. For routine questions regarding patient records, call [phone] during business hours, M-F 8:00 AM - 5:00 PM Central Time. Record requests for emergency care only can be directed to [phone] at any time.[facility] Allergies No known active allergies Medications [...] (04/26/2022): Added automatically from request for surgery [id number] Osteoporosis 04/26/2022 Family History Medical History Relation [...] How often do you attend chur or zoroastrian services? Patient declined 05/29/2022 Do you belong to any clubs o r organizations such as taoism groups, unions, fraternal or athletic groups, or [...] Answer Date Recorded PHQ-2 Score 0 11/27/2022 [facility] of Occupat ional [facility] - Occupational Stress Questionnaire Answer Date Recorded [...] place to sleep or slept in a long-term (including now)? No 05/29/2022 Nutrition Answer Date [...] Discontinued 03/15/2022 Medical Devices Implanted Type Area Can Reconditioner Device Identifier Shelf Expiration Date Model / [...] Juan Francisco Germain P.A.-C. LAB BLOOD ADD-ON [facility] [address] [place] [address], [facility] [address] [place] [address] from Last 3 Months or Most Recently Relevant to Health Maintenance Advance Directives For more information, please contact: [phone] * Full Code (Latest Code Status on [...] Answer Comments Full Code: Discussed Care Teams Gymnasium Teacher Relationship Specialty Start Date End Date Elsewhere, Pcp PCP - General Internal Medicine 06/01/22
--- OUTSIDE RECORDS SUMMARY | 2024-01-01 07:08 | XMS_ITS | Referral Summary ---
Author Organization [facility] Address [address] [place] [address] Care Team Providers Care Window/Distribution Clerk Name Role Phone Elsewhere, Pcp Primary Care Provider Unavailabl e Source Comments Patient records contain information from all sites at [facility]. For routine questions regarding patient records, call [phone] during business hours, M-F 8:00 AM - 5:00 PM Central Time. Record requests for emergency care only can be directed to [phone] at any time.[facility] Allergies No known active allergies Medications Medication [...] (04/26/2022): Added automatically from request for surgery [id number] Osteoporosis 04/26/2022 Social History Tobacco Use Types [...] often do you attend chur ch or hindu services? Patient declined 05/29/2022 Do you belong to any clubs o r organizations such as rastafarian groups, unions, fraternal or athletic groups, or [...] Answer Date Recorded PHQ-2 Score 0 11/27/2022 [facility] of Occupat ional [facility] - Occupational Stress Questionnaire Answer Date [...] on file Medical Devices Implanted Type Area Piledriver Carpenter Device Identifier Shelf Expiration Date Model / [...] Juan Francisco Germain P.A.-C. LAB BLOOD ADD-ON [facility] [address] [place] [address], [facility] [address] [place] [address] from Last 3 Months or Most Recently Relevant to Health Maintenance Advance Directives For more information, please contact: [phone] * Full Code (Latest Code Status on [...] Answer Comments Full Code: Discussed Care Teams Window/Distribution Clerk Relationship Specialty Start Date End Date Elsewhere, Pcp PCP - General Internal Medicine 06/01/22
--- NOTE | 2024-01-01 08:15 | CRLHL7_ITS ---
For Patients: As a result of the Century Cures Act, medical imaging exams and procedure reports are released immediately into your electronic medical record. You may view this report before your referring provider. If you have questions, please contact your health care provider. BILATERAL SCREENING MAMMOGRAM WITH COMPUTER-AIDED DETECTION AND TOMOSYNTHESIS TECHNIQUE: CC and MLO views were obtained. These mammographic images have been obtained using full-field digital technique. These mammographic images were interpreted with the benefit of computer-aided detection. Breast Tomosynthesis was used in this interpretation. COMPARISON FILM: 10/28/18, 12/28/22, 12/21/21. FINDINGS: The breasts are heterogeneously dense, which may obscure small masses. IMPRESSION: There is no radiographic evidence for malignancy. ASSESSMENT: BI-RADS Category 2: Benign RECOMMENDATION: Routine screening mammogram in 1 year. A lay language report of this examination will be provided to the patient. Wenceslao Javed M.D. Diagnostic Radiologist [email or web address] SP/Dictated by: Wenceslao Javed MD @ 01/01/2024 12:10:00 PM (Electronically Signed)
== END 2024-01-01 07:06 | disposition home or self-care (01) ==
PROVIDERS: PCP Family Medicine; Visit Provider Family Medicine
DX: Z12.31 Encounter for screening mammogram for malignant neoplasm of breast (principal); R92.333 Mammographic heterogeneous density, bilateral breasts
CPT/HCPCS: 77063; 77067

== ENCOUNTER 2024-02-12 15:54 | Outpatient (CLI) | payer OTHER, SELFPAY ==
--- OUTSIDE RECORDS SUMMARY | 2024-02-12 15:56 | XMS_ITS | Clinical Summary ---
Author Organization [facility] Address [address] [place] [address] Care Team Providers Care Foundation Digger Name Role Phone Elsewhere, Pcp Primary Care Provider Unavailabl e Source Comments Patient records contain information from all sites at [facility]. For routine questions regarding patient records, call [phone] during business hours, M-F 8:00 AM - 5:00 PM Central Time. Record requests for emergency care only can be directed to [phone] at any time.[facility] Allergies No known active allergies Medications * This document contains information received from the source organization and may not represent a complete record from that organization. topiramate (TOPAMAX) 50 mg tablet Take 50 mg by mouth daily. 0 Active eletriptan (RELPAX) 40 mg tablet Take 40 mg by mouth as needed. 0 Active alendronate (FOSAMAX) 70 mg tablet 70 mg once a week. 2 Active VITAMIN B COMPLEX ORAL Take 1 [...] 4 g in 24 hours. 30 tablet 3 Active ibuprofen (ADVIL,MOTRIN) 200 mg tablet Take 3 tablets (600 mg total) by mouth every 6 (six) hours as needed for pain. Alternate with acetaminophen every 3 hours. 30 tablet 3 Active levoFLOXacin (LEVAQUIN) 500 mg tablet Take 1 tablet (500 mg total) by mouth daily. 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 Patient declined 05/29/2022 Do you belong to any clubs o r organizations such as rastafari groups, unions, fraternal or athletic groups, or [...] Answer Date Recorded PHQ-2 Score 0 11/27/2022 [facility] of Occupat ional [facility] - Occupational Stress Questionnaire Answer Date Recorded [...] place to sleep or slept in a assisted (including now)? No 05/29/2022 Nutrition Answer Date [...] have received? 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 Gender Identity Female 08/26/2022 7:55 AM CDT Sexual Orientation Straight 08/26/2022 7: 55 AM CDT Last Filed Vital Signs Vital Sign Reading Time Taken Comments Blood Pressure 96/68 11/27/2022 1:09 PM CDT Pulse 98 11/27/2022 1:09 PM CDT Temperature 36.2 C (97.2 F) 11/27/2022 1:09 PM CDT Respiratory Rate 20 08/09/2022 9:57 AM CDT [...] on patient's age to complete this topic Cervical/Vaginal Cancer Screening Discontinued 03/15/2022 IPV Vaccines Aged Out No longer eligi ble based on patient's age to complete this topic Medical Devices Implanted Type Area Tank Car Reconditioner Device Identifier Shelf Expiration Date Model [...] Juan Francisco Germain P.A.-C. LAB BLOOD ADD-ON Final Re sult [facility] [address] [place] [address], [facility] [address] [place] [address] from Last 3 Months or Most Recently Relevant to Health Maintenance Advance Directives For more information, please contact: [phone] * Full Code (Latest Code Status on [...] Answer Comments Full Code: Discussed Care Teams Foundation Digger Relationship Specialty Start Date End Date Elsewhere, Pcp PCP - General Internal Medicine 06/01/22
--- OUTSIDE RECORDS SUMMARY | 2024-02-12 15:56 | XMS_ITS | Referral Summary ---
Author Organization [facility] Address [address] [place] [address] Care Team Providers Care Fire Protection Designer Name Role Phone Elsewhere, Pcp Primary Care Provider Unavailabl e Source Comments Patient records contain information from all sites at [facility]. For routine questions regarding patient records, call [phone] during business hours, M-F 8:00 AM - 5:00 PM Central Time. Record requests for emergency care only can be directed to [phone] at any time.[facility] Allergies No known active allergies Medications * [...] (04/26/2022): Added automatically from request for surgery [id number] Osteoporosis 04/26/2022 Social History Tobacco Use Types [...] week 05/29/2022 How often do you attend [facility] or adventist services? Patient declined 05/29/2022 Do you belong to any clubs o r organizations such as islam groups, unions, fraternal or athletic groups, or [...] Answer Date Recorded PHQ-2 Score 0 11/27/2022 [facility] of Occupat ional [facility] - Occupational Stress Questionnaire Answer Date [...] place to sleep or slept in a halfway (including now)? 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 LAB BLOOD ADD-ON Final Re sult [facility] [employer] [facility] [address] [place] [address], [facility] DTL [facility] [address] [place] [address] from Last 3 Months or Most Recently Relevant to Health Maintenance Advance Directives For more information, please contact: [phone] * Full Code (Latest Code Status on [...] Answer Comments Full Code: Discussed Care Teams Fire Protection Designer Relationship Specialty Start Date End Date Elsewhere, Pcp PCP - General Internal Medicine 06/01/22
--- OUTSIDE RECORDS SUMMARY | 2024-02-12 15:56 | XMS_ITS ---
Author Organization [facility] Address [address] [place] [address] Care Team Providers Care Esol Teacher Assistant Name Role Phone Unavailable Unavailable Unavailable Surgery Details Not on file Complications Check Surgery Details section. Procedure Estimated Blood Loss Check Surgery Details section. Procedure Findings Check Surgery Details section. Procedure Specimens Taken Check Surgery Details section.
== END 2024-02-12 15:55 | disposition home or self-care (01) ==
PROVIDERS: PCP Family Medicine; Visit Provider Family Medicine
DX: K59.00 Constipation, unspecified (principal); R10.9 Unspecified abdominal pain
CPT/HCPCS: 80053; 84443

== ENCOUNTER 2024-08-05 07:32 | Outpatient (CLI) | payer OTHER, SELFPAY | END 2024-08-05 07:33 | disposition home or self-care (01) | LOC: NFLDREF 08-12 03:14 | PROVIDERS: PCP Family Medicine; Referring Provider Family Medicine; Visit Provider Family Medicine | DX: M81.0 Age-related osteoporosis without current pathological fracture (principal); R53.83 Other fatigue; E78.5 Hyperlipidemia, unspecified; Z86.39 Personal history of other endocrine, nutritional and metabolic disease | CPT/HCPCS: 80053; 80061; 82306; 84443 ==

== ENCOUNTER 2024-08-05 11:45 | Outpatient (RCR) | payer OTHER, SELFPAY | END 2024-12-03 23:59 | disposition home or self-care (01) | PROVIDERS: PCP Family Medicine | DX: M72.0 Palmar fascial fibromatosis [Dupuytren] (principal); Z51.89 Encounter for other specified aftercare | CPT/HCPCS: 97035; 97110; 97140; 97165; L3919; X5282 ==

== ENCOUNTER 2025-01-04 11:14 | Outpatient (CLI) | payer OTHER, SELFPAY ==
--- NOTE | 2025-01-04 11:30 | CRLHL7_ITS ---
For Patients: As a result of the Century Cures Act, medical imaging exams and procedure reports are released immediately into your electronic medical record. You may view this report before your referring provider. If you have questions, please contact your health care provider. INDICATION: BILATERAL SCREENING MAMMOGRAM, ASYMPTOMATIC 64 Y/O FEMALE COMPARISON: 01/01/2024, 12/28/2022, 12/21/2021 TECHNIQUE: Digital mammogram in CC and MLO projections including computer-aided detection (CAD) and tomosynthesis. BREAST COMPOSITION: The breasts are heterogeneously dense, which may obscure small masses. FINDINGS: No suspicious findings. ASSESSMENT: BI-RADS 1 Negative RECOMMENDATION: Annual screening mammogram. A lay language report of this examination will be provided to the patient. Dictated by: Renee Flor MD @ 01/05/2025 18:25:55 (Electronically Signed)
== END 2025-01-04 11:15 | disposition home or self-care (01) ==
LOC: MAMMO 11:15
PROVIDERS: PCP Family Medicine; Visit Provider Family Medicine
DX: Z12.31 Encounter for screening mammogram for malignant neoplasm of breast (principal); R92.333 Mammographic heterogeneous density, bilateral breasts
CPT/HCPCS: 77063; 77067